=== PATIENT | male | born 1965 | race Caucasian/White ===

== ENCOUNTER 2022-10-05 17:49 | Emergency (ER) | payer BC ==
[~2022-10-05] VITALS: Ht 177.8 cm; Wt 83.9 kg
[2022-10-05] MEDS ORDERED: LIDOCAINE 5% PATCH TD ONE ×2 (19:00→19:25)
[2022-10-05] MEDS ORDERED: CYCLOBENZAPRINE HCL 10 MG TABLET PO ONE (19:00)
[2022-10-05] MEDS ORDERED: predniSONE 20 MG TABLET PO ONE (19:00)
[2022-10-05] MEDS ORDERED: IBUPROFEN 800 MG TABLET PO ONE (19:00)
[2022-10-05] MEDS ORDERED: predniSONE 50 MG TABLET ONE (19:26)
[2022-10-05] MEDS ORDERED: CYCLOBENZAPRINE HCL 10 MG TABLET ONE (19:26)
[2022-10-05] MEDS ORDERED: predniSONE 10 MG TABLET ONE (19:26)
[2022-10-05] MEDS ORDERED: IBUPROFEN 800 MG TABLET ONE (19:26)
[2022-10-05] MEDS ORDERED: PRED50TA PO (19:41)
[2022-10-05] MEDS ORDERED: CYCL10TA9 PO (19:41)
[2022-10-05 19:49] VITALS: BP 155/85; TEMP 98.4; O2SAT 97
== END 2022-10-05 19:49 | disposition home or self-care (01) ==
LOC: ER 17:49
DX: M54.9 Dorsalgia, unspecified (principal); I10 Essential (primary) hypertension; Z79.899 Other long term (current) drug therapy
CPT/HCPCS: A4663; J7512